=== PATIENT | male | born 1990 | race Asian ===

== ENCOUNTER 2019-12-28 09:24 | Outpatient (CLI) | payer BC ==
--- NOTE | 2019-12-28 12:01 | ULT ---
SOFT TISSUE NECK ULTRASOUND: HISTORY: The patient presents with right neck/submandibular pain, intermittent x 2 months. COMPARISON: None. TECHNIQUE: Targeted sonographic imaging of the region of concern is performed. Static images are submitted for interpretation. FINDINGS: Right Neck: There is an enlarged right neck lymph node with preserved fatty hilum measuring 1.5 x 0. 4 cm. There is a nonvascular hypoechoic structure in the right neck measuring 0.9 x 0.5 x 0.8 cm. T he possibility of an inflamed lymph node cannot be excluded. Imaging of the contralateral neck was performed for comparison and there is no corresponding hypoecho ic focus. IMPRESSION: Normal-appearing enlarged right neck lymph node with an adjacent possibly edematous smaller right nec k lymph node. Better interrogation with postcontrast soft tissue neck CT is recommended. POS: [facility]PP
== END 2019-12-28 09:25 | disposition home or self-care (01) ==
LOC: SCSULT 09:24
PROVIDERS: ATTEND Family Medicine
DX: R59.0 Localized enlarged lymph nodes (principal)
CPT/HCPCS: 76536